=== PATIENT | female | born 1995 | race Caucasian/White ===

== ENCOUNTER 2024-05-19 08:54 | Emergency (ER) | payer OTHER, SELFPAY ==
[2024-05-19 08:58] VITALS: BP 111/78; PULSE 124; TEMP 36.9; O2SAT 95; BMI 34.9
--- NOTE | 2024-05-19 09:08 | ED_ITS ---
HPI HPI - General Adult General Chief complaint: Ear Stated complaint: FEVER SINUS EAR PAIN Time Seen by Provider: 05/19/24 09:05 Mode of arrival: walk-in History of Present Illness HPI narrative: 28-year-old female presents for a 2-day history of congestion and left ear pain and bodyaches and cough. Her cough is nonproductive and her throat hurts as well. No known ill contacts. She has had a fever at home as well. Related Data Previous Rx's ?Medication ?Instructions ?Recorded ibuprofen 800 mg tablet 800 mg PO Q8H PRN pain #20 tabs 05/19/24 loratadine 5 mg-pseudoephedrine ER 1 tab PO Q12H PRN nasal congestion 05/19/24 120 mg tablet,extended #20 tabs release,12hr (Claritin-D 12 Hour) Allergies Allergy/AdvReac Type Severity Reaction Status Date / Time sulfamethoxazole (From AdvReac Severe Hives Verified 05/19/24 08:58 Bactrim) trimethoprim (From Bactrim) AdvReac Severe Hives Verified 05/19/24 08:58 Opioid HPI Opioid Management Most Recent Opioid Data: No Data to Display Review of Systems ROS Narrative A ten point review of systems is negative except as noted above. PFSH PFSH Social History Little interest or pleasure in doing things: not at all Feeling down, depressed, or hopeless: not at all Exam Narrative Exam Narrative: Nurses note and vital signs reviewed and patient is not hypoxic. General: The patient appears well and in no apparent distress. Patient is resting comfortably on cart. Skin: Warm, dry, no pallor noted. There is no rash noted. Head: Normocephalic, atraumatic Eye: Normal conjunctiva, no drainage Ears, Nose, Mouth, and Throat: oral mucosa is moist. Nares patent. No pharyngeal erythema or exudate. Uvula midline. Both TMs and both external canals are normal Cardiovascular: Regular Rate and Rhythm Respiratory: Patient is in no distress, no accessory muscle use, lungs are clear to auscultation, no wheezing, rales or rhonchi Back: non-tender GI: Soft and nontender Musculoskeletal: The patient has no evidence of calf tenderness, no pitting edema, symmetrical pulses noted bilaterally Neurological: A&O normal speech Psychiatric: Cooperative Constitutional Vital Signs, click to edit/add: Last Vital Signs Temp 98.4 F 05/19/24 08:58 Pulse 106 H 05/19/24 10:09 Resp 18 05/19/24 08:58 BP 111/78 05/19/24 08:58 Pulse Ox 95 05/19/24 08:58 O2 Del Method Room Air 05/19/24 08:58 Course Vital Signs Vital signs: Vital Signs Temperature 98.4 F 05/19/24 08:58 Pulse Rate 124 H 05/19/24 08:58 Respiratory Rate 18 05/19/24 08:58 Blood Pressure 111/78 05/19/24 08:58 Pulse Oximetry 95 05/19/24 08:58 Oxygen Delivery Method Room Air 05/19/24 08:58 Temperature 98.4 F 05/19/24 08:58 Pulse Rate 106 H 05/19/24 10:09 Respiratory Rate 18 05/19/24 08:58 Blood Pressure 111/78 05/19/24 08:58 Pulse Oximetry 95 05/19/24 08:58 Oxygen Delivery Method Room Air 05/19/24 08:58 Medical Decision Making MDM Narrative Medical decision making narrative: Testing shows presence of influenza type A. She is being treated symptomatically. Treatment diagnosis and follow-up were discussed with the florence faustin. Differential Diagnosis Differential Diagnosis: Influenza, COVID, strep, viral illness Lab Data Lab results reviewed: Yes I reviewed the patient's lab results Labs: Lab Results 05/19/24 05/19/24 Range/Units 09:16 09:39 Influenza Type A Ag Positive A Influenza Type B Ag Negative SARS-CoV-2 Ag (CV2AG) Negative (NEGATIVE) Streptococcus Screen Negative Discharge Plan Discharge Chief Complaint: Ear Clinical Impression: Influenza A Patient Disposition: Home, Self-Care Time of Disposition Decision: 10:24 Condition: Good Mode of Transportation: Private Vehicle Prescriptions / Home Meds: New ibuprofen 800 mg tablet 800 mg PO Q8H PRN (Reason: pain) Qty: 20 0RF Claritin-D 12 Hour 5-120 mg tablet extended release 12 hr 1 tab PO Q12H PRN (Reason: nasal congestion) Qty: 20 0RF Print Language: Italian Instructions: Influenza (ED), Flu Shot (Vaccine) for Adults (ED) Referrals: Yaw Marroquin [Primary Care Provider] - 1 week
[2024-05-19 09:31] LABS: Influenza Virus A Antigen Positive; Influenza Virus B Antigen Negative; Internal Control Within Normal Limits
[2024-05-19 09:32] LABS: Internal Control Within Normal Limits; SARS-CoV-2 Ag NEGATIVE (NEGATIVE)
[2024-05-19 10:09] VITALS: PULSE 106
[2024-05-19 10:11] LABS: Internal Control Within Normal Limits; Strep A Antigen Screen Negative
[2024-05-19 10:29] VITALS: BP 136/88; PULSE 89; O2SAT 98
== END 2024-05-19 10:29 | disposition home or self-care (01) ==
PROVIDERS: Emergency Provider Emergency Medicine; PCP Family Medicine
DX: J10.1 Influenza due to other identified influenza virus with other respiratory manifestations (principal); D69.3 Immune thrombocytopenic purpura
CPT/HCPCS: 87070; 87804; 87811; 87880; 99283